=== PATIENT | female | born 1985 | race Caucasian/White ===

== ENCOUNTER 2018-09-07 06:53 | Inpatient (IN) | payer BC ==
[~2018-09-07] VITALS: Ht 162.7 cm; Wt 120.9 kg
[2018-09-12] VITALS (7 sets, daily range): BP systolic 121–140; BP diastolic 58–86; PULSE 86–101; TEMP 98.1–98.5
[2018-09-12] MEDS ORDERED: SYNTHROID0.1 MG/TAB PO (19:54)
[2018-09-12] MEDS ORDERED: NATURE S BLEND TP (19:56)
[2018-09-12] MEDS ORDERED: FOLIC ACID 11 MG/TA1 PO (19:57)
[2018-09-12] MEDS ORDERED: PRENATAL MULTIV1 KIT PO (19:57)
[2018-09-12] MEDS ORDERED: ZYRTEC 10MG10 MG PO (19:58)
[2018-09-12] MEDS ORDERED: CALCIUM CARBON650 M2 (19:58)
[2018-09-12] MEDS ORDERED: NATURAL IRON65 MG (19:58)
[2018-09-12] MEDS ORDERED: ASPIRIN 81M81 MG/TA2 PO (19:58)
[2018-09-12] MEDS ORDERED: KLOR-CON 88 ME1 PO (19:59)
[2018-09-12] MEDS ORDERED: OMEGA-3 1000 MG1 CAP PO (19:59)
[2018-09-12] MEDS ORDERED: THE MEDICINE S200 M2 PO (19:59)
[2018-09-12] MEDS ORDERED: VITAMIN B12 781 TAB PO (20:00)
[2018-09-12] MEDS ORDERED: NATURAL MAGNES200 MG PO (20:00)
[2018-09-12 21:30] LABS: BASO % 0.3 % (0.0-2.0); EOS # 0.1 (0.0-0.7); GRAN % 68.5 % (42.2-75.2); HEMOGLOBIN 11.8 g/dl (12.5-16.0); LYMPH # 1.9 (1.2-3.4); LYMPH % 22.1 % (20.0-51.0); MEAN CELL VOLUME 92 fl (80.0-100.0); MEAN CORPUSCULAR HEMOGLOBIN 31 pg (27.0-31.0); MEAN CORPUSCULAR HGB CONC 34 g/dl (33.0-37.0); MEAN PLATELET VOLUME 10.3 fl (7.4-10.4); MONO # 0.6 (0.1-0.6); MONO % 6.8 % (1.7-9.3); PLATELET COUNT 254 K/mm3 (130-400); RED BLOOD COUNT 3.79 M/mm3 (4.10-5.30); REDCELL DISTRIBUTION WIDTH-CV 15.7 % (11.5-14.5)
[2018-09-12 21:39] LABS: HEMATOCRIT 34.8 % (37.0-47.0)
[2018-09-13] VITALS (53 sets, daily range): BP systolic 125–166; BP diastolic 63–821; PULSE 70–107; TEMP 98–98.5
[2018-09-14 01:15] VITALS: BP 150/89; PULSE 93; TEMP 98.6
[2018-09-14] MEDS ORDERED: PERCOCET 325 MG1 TA2 PO (08:45)
[2018-09-14] MEDS ORDERED: IBU600 MG PO (08:45)
[2018-09-14 08:50] VITALS: BP 142/80; PULSE 82; TEMP 98.1
[2018-09-14 11:10] VITALS: BP 148/85; PULSE 98; TEMP 98.2
[2018-09-14 16:10] VITALS: BP 140/83; PULSE 93; TEMP 97.9
[2018-09-14 20:30] VITALS: BP 136/78; PULSE 96; TEMP 97.9
[2018-09-15 08:33] VITALS: BP 144/92; PULSE 98; TEMP 98.1
[2018-09-15 15:40] VITALS: BP 134/76; PULSE 98; TEMP 97.8
[2018-09-15 19:50] VITALS: BP 143/81; PULSE 100; TEMP 98.4
== END 2018-09-16 10:00 | disposition home or self-care (01) | DRG 788 ==
LOC: LDR 09-12 14:05 → OB 09-12 19:06 → LDR 09-12 19:06 → OB 09-13 14:25
PROVIDERS: Obstetrics & Gynecology
PROC: 3E0P7VZ Introduction of Hormone into Female Reproductive, Via Natural or Artificial Opening (ICD-10-PCS; 2018-09-12)
PROC: 3E033VJ Introduction of Other Hormone into Peripheral Vein, Percutaneous Approach (ICD-10-PCS; 2018-09-12)
PROC: 10D00Z1 Extraction of Products of Conception, Low, Open Approach (ICD-10-PCS; principal; 2018-09-13)
DX: O61.0 Failed medical induction of labor (principal); Z3A.39 39 weeks gestation of pregnancy; Z37.0 Single live birth; O26.86 Pruritic urticarial papules and plaques of pregnancy (PUPPP); O99.013 Anemia complicating pregnancy, third trimester; O99.283 Endocrine, nutritional and metabolic diseases complicating pregnancy, third trimester; E03.9 Hypothyroidism, unspecified; O36.63X0 Maternal care for excessive fetal growth, third trimester, not applicable or unspecified
CPT/HCPCS: J0690; J1885; J2370; J2405; J2590; J7120